=== PATIENT | female | born 1945 | race Caucasian/White ===

== ENCOUNTER 2022-09-01 16:16 | Emergency (ER) | payer MEDICARE, BC ==
[2022-09-01] MEDS ORDERED: HYDROmorphone 0.5 MG/0.5 ML Syringe IVPUSH ONE (17:12)
[2022-09-01] MEDS ORDERED: Ondansetron 4 MG/2 ML SDV IVPUSH ONE (17:12)
[2022-09-01] MEDS ORDERED: Sodium Chloride 0.9% 1,000 ML IV STA (17:12)
[2022-09-01 17:45] LABS: ESTIMATED GFR 75 mL/min (>60)
[2022-09-01 19:38] VITALS: BP 132/84; PULSE 64
== END 2022-09-01 18:40 ==
LOC: JD.ED 16:16
DX: S72.001A Fracture of unspecified part of neck of right femur, initial encounter for closed fracture (principal); E78.00 Pure hypercholesterolemia, unspecified; I10 Essential (primary) hypertension; E03.9 Hypothyroidism, unspecified; Z79.82 Long term (current) use of aspirin; Z79.899 Other long term (current) drug therapy; Z20.822 Contact with and (suspected) exposure to COVID-19; W19.XXXA Unspecified fall, initial encounter; Y92.009 Unspecified place in unspecified non-institutional (private) residence as the place of occurrence of the external cause
CPT/HCPCS: 36415; 70450; 72170; 73552; 80053; 85025; 96361; 96374; 96375; 99285; J1170; J2405; J7030; U0002